=== PATIENT | female | born 1950 | race Caucasian/White ===

== ENCOUNTER 2024-10-07 13:53 | Emergency (ER) | payer MEDICARE, BC ==
[~2024-10-07] VITALS: Ht 152.4 cm; Wt 65.9 kg
[2024-10-07 14:04] VITALS: BP 184/81; PULSE 83; RESP 16; O2SAT 98
[2024-10-07] MEDS: dexamethasone sod phosphate 10mg/ml inj IM STA (15:30)
--- NOTE | 2024-10-07 15:32 | Physician Documentation ---
History of Present Illness ~ Chief Complaint: Hip pain Stated Complaint: BACK PAIN Time Seen by MD: 14:54 OK to notify your PCP?: Yes Source: patient Mode of Arrival: POV Exam Limitations: no limitations HPI 74-year-old female with chief complaint left buttock pain which she states she woke up with. The pain radiates down the back of her left leg. She states she has had this once before but it has been many years. 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 She denies any groin pain, recent falls, edema, rashes, urinary retention or bowel or bladder incontinence. Normally ambulates without contact center assistant but now using walker to ambulate due to pain. Medication Reconciliation Allergies: Coded Allergies: No Known Allergies (Unverified , 10/07/24) Scheduled Dexamethasone (Dexamethasone), 1 TAB PO QAM Gabapentin (Gabapentin), 2 CAP PO qhs Scheduled PRN Hydrocodone Bit/Acetaminophen 5/325 MG ([place] 5/325 MG), 1 TAB PO TID PRN for pain Past Medical History Past Medical History: No Pertinent History Past Surgical History: noncontributory Smoking Status: Never smoker Alcohol Use: None Drug Use: none Lives with: Spouse Lives In: Home Occupation: retired (Your) Review of Systems All Other Systems at this time: Reviewed and Negative Physical Exam Physical Exam Vital Signs: Temperature: 98.0, Source: Temporal, Heart Rate: 83, Respiratory Rate: 16, BP: 184/81, Pulse Oximetry: 98, Weight: 65.910 Physical Exam General Appearance: Alert, WD/WN. NAD. HEENT: NCAT, PERRL, EOMI. Neck: Supple, trachea midline. Cardiovascular: RRR. No m/r/g. Lungs: CTAB. Breathing unlabored MSK: TTP OVER LEFT PARASPINAL MUSCLES OF LUMBAR LUMBAR SPINE AND LEFT SI JOINT, PIRIFORMIS MUSCLE AREA. NO MIDLINE TTP. Extremities: Normal inspection. No edema. Skin: Warm/dry, normal color Neurological: Alert and oriented x4, AMBULATING WITH WALKER. Psychiatric: Affect congruent with mood. Progress Results/Orders Results/Orders Completed Orders - DEEP KIDD Dexamethasone Inj (Decadron 10mg/Ml Inj) (10/07/24 15:16) Medications Received in ER Medications (Trade) Dose Ordered Sig/Tianna Route PRN Reason Start Time Stop Time Status Last Admin Dose Admin (Decadron 10mg/ ml inj) 10 mg ONCE STAT IM 10/07/24 15:16 10/07/24 15:18 DC 10/07/24 15:30 10 MG Vital Signs 10/07/24 14:04 Temp 98.0 Pulse 83 Resp 16 B/P (MAP) 184/81 Pulse Ox 98 Medical Decision Making Differential Dx:Considerations: Include: AAA, Aortic dissection, , Appendicitis, Bowel obstruction, Cholelithiasis, Cholangitis, DJD, Ectopic , Fracture, Hepatitis, HNP, Musculoskeletal pain, Pancreatitis, Pyelonephritis, Strain, Urinary obstruction, Urolithiasis, Ovarian torsion Departure Time of Disposition: 15:31 Disposition: HOME / SELF CARE / HOMELESS Impression: Primary Impression: Back pain with left-sided radiculopathy Condition: Stable Discharge Instructions: Acute Back Pain, Adult Additional Instructions: If urinary incontinence, bowel incontinence, urinary retention, numbness in saddle area, clumsiness or lower extremities or any other neurological symptoms of lower extremities return to ER immediately. if uncontrolled pain return to ER. f/u with pcp next week Prescriptions sent to pharmacy Referrals: NO PRIMARY CARE PROVIDER (PCP) Prescriptions Hydrocodone Bit/Acetaminophen 5/325 MG ([place] 5/325 MG) 5 Mg/325 Mg Tablet 1 TAB PO TID PRN for pain for 7 Days, #21 TAB dx: back pain with radiculopathy M54.16 Prov: DEEP KIDD 10/07/24 Gabapentin (Gabapentin) 100 Mg Capsule 2 CAP PO qhs for 30 Days, #60 CAP 0 Refills Prov: DEEP KIDD 10/07/24 Dexamethasone (Dexamethasone) 6 Mg Tablet 1 TAB PO QAM for 5 Days, #5 TAB 0 Refills Prov: DEEP KIDD 10/07/24 Education Educated: Patient Educated regarding: diagnosis, treatment, need for follow up Signature Santana Signature: johan Attestation: DEEP Hudson October 07, 2024 15:32
[2024-10-07] MEDS ORDERED: HYDR-3965 PO (15:37)
[2024-10-07] MEDS ORDERED: DEXA6TAB PO (15:37)
[2024-10-07] MEDS ORDERED: GABA-530 PO (15:37)
[2024-10-07 15:51] VITALS: TEMP 98
== END 2024-10-07 15:53 | disposition home or self-care (01) ==
LOC: ER 13:54
DX: M54.10 Radiculopathy, site unspecified (principal); Z79.899 Other long term (current) drug therapy
CPT/HCPCS: 96372; 99284; J1100